=== PATIENT | female | born 1960 | race Caucasian/White ===

== ENCOUNTER 2023-04-07 09:38 | Outpatient (CLI) | payer MEDICAID, SELFPAY | END 2023-04-07 09:39 | disposition home or self-care (01) | PROVIDERS: PCP Family Medicine; Visit Provider Family Medicine | DX: Z00.00 Encounter for general adult medical examination without abnormal findings (principal); R73.03 Prediabetes; R78.5 Finding of other psychotropic drug in blood; E07.9 Disorder of thyroid, unspecified; R53.83 Other fatigue | CPT/HCPCS: 80053; 80061; 84443 ==